=== PATIENT | female | born 1990 | race Caucasian/White ===

== ENCOUNTER 2017-11-27 20:15 | Emergency (ER) | payer SELFPAY ==
[~2017-11-27] VITALS: Ht 157.5 cm; Wt 115.2 kg
[2017-11-27 20:23] VITALS: Ht 157.5 cm; Wt 115.2 kg
[2017-11-28 01:48] VITALS: BP 132/58
== END 2017-11-28 01:48 | disposition home or self-care (01) ==
LOC: ED 20:15
DX: S09.90XA Unspecified injury of head, initial encounter (principal); M54.2 Cervicalgia; M54.5 Low back pain; W18.39XA Other fall on same level, initial encounter; Y93.89 Activity, other specified; Y92.89 Other specified places as the place of occurrence of the external cause; Y99.8 Other external cause status
CPT/HCPCS: J1885; Q0162